=== PATIENT | female | born 1990 | race Two or more races ===

== ENCOUNTER 2017-06-01 15:37 | Emergency (ER) | payer SELFPAY ==
[~2017-06-01] VITALS: Ht 167.6 cm; Wt 68.0 kg
[2017-06-01 15:37] VITALS: BP 131/86
[2017-06-01 15:55] LABS: APPEARANCE,URINE Clear (CLEAR); BILIRUBIN,URINE Negative (NEGATIVE); BLOOD, URINE Negative Ery/uL (NEGATIVE); COLOR,URINE Yellow (YELLOW); KETONES,URINE Negative (NEGATIVE); LEUKOCYTE ESTERASE ,URINE Large (NEGATIVE); NITRITE, URINE Negative (NEGATIVE); PROTEIN,URINE Negative (NEGATIVE); UGLUCOSE Negative (NEGATIVE); UROBILINOGEN,URINE 0.2 EU/dL (0.2)
[2017-06-01 15:59] LABS: BACTERIA,URINE Few /HPF (None Seen); SQUAMOUS EPITHELIAL CELL,UR Few /HPF (None Seen); YEAST,URINE Rare /HPF (None Seen)
[2017-06-01 16:00] LABS: MUCUS,URINE Rare /LPF (None Seen)
== END 2017-06-01 16:36 | disposition home or self-care (01) ==
LOC: ER 15:38
DX: N39.0 Urinary tract infection, site not specified (principal); F10.10 Alcohol abuse, uncomplicated
CPT/HCPCS: 81001; 84703; 99283; A4606; Z7610; 81000-TC